=== PATIENT | male | born 1955 | race Two or more races ===

== ENCOUNTER 2019-08-21 20:52 | Emergency (ER) | payer BC ==
[~2019-08-21] VITALS: Ht 180.3 cm; Wt 90.7 kg
[2019-08-21 21:27] VITALS: BP 151/97
[2019-08-22] MEDS ORDERED: LIDOCAINE 1% HCL (LOCAL ANESTH.) INJ 20ML MDV ONE (00:16)
[2019-08-22] MEDS ORDERED: TETANUS-DIPTH-ACEL PERTUSSIS 0.5ML SYR Tdap IM ONE (00:45)
[2019-08-22] MEDS ORDERED: LIDOCAINE 1% HCL (LOCAL ANESTH.) INJ 20ML MDV IJ ONE (01:00)
[2019-08-22] MEDS ORDERED: NEOMYCIN-BACITRACIN-POLYM UNITDOSE PKG TOP OINT TOP ONE (01:00)
== END 2019-08-22 01:08 | disposition home or self-care (01) ==
LOC: ER 20:53
DX: S62.630A Displaced fracture of distal phalanx of right index finger, initial encounter for closed fracture (principal); S61.210A Laceration without foreign body of right index finger without damage to nail, initial encounter; Z87.891 Personal history of nicotine dependence; V86.69XA Passenger of other special all-terrain or other off-road motor vehicle injured in nontraffic accident, initial encounter; Y93.89 Activity, other specified; Y92.488 Other paved roadways as the place of occurrence of the external cause; Y99.8 Other external cause status
CPT/HCPCS: 12002; 29130; 73130; 90471; 90715; 99283; J2001